=== PATIENT | male | born 1960 | race Caucasian/White ===

== ENCOUNTER → 2016-08-15 | Outpatient (CLI) | payer OTHER ==
--- NOTE | 2016-08-15 18:38 | REP ---
Clinical: Right-sided chest pain . Technique: Frontal view of the chest with multiple views of the right hemithorax. Findings: Frontal view of the chest demonstrates no acute cardiopulmonary process. Multiple views of the right hemithorax demonstrates no obvious acute rib fracture or pathology. Impression: Normal right rib series Signed by Tad Buchanan MD 08/15/2016 06:30 P
== END ==
LOC: M RAD 15:58
PROVIDERS: ATTEND Surgery
DX: R07.89 Other chest pain (principal)

== ENCOUNTER 2016-08-30 11:05 | Outpatient (CLI) | payer OTHER ==
[~2016-08-30] VITALS: Ht 177.8 cm; Wt 105.7 kg
[~2016-08-30 11:05] MED LIST: AMLO10TA2 PO; ASPI1TAB PO; FLOM5CAP PO; LIDOCAINE 2% INJ 100 MG/5 ML SDV (FOR ANES.) As Ordered ONE; PROPOFOL 200 MG/20 ML VIAL As Ordered ONE
--- NOTE | 2016-08-30 12:01 | ROOR ---
Patient Name: Hay Callahan Procedure Date: 08/30/2016 11:36 AM Date of : 1960 Age: 55 Room: [facility] Gender: Male Note Status: Finalized Procedure: Colonoscopy Indications: High risk colon cancer surveillance: Personal history of colonic polyps Providers: Mono Andrew Jr, MD Referring MD: RODERICK MANLEY MD Requesting Provider: Medicines: Propofol per Anesthesia Complications: No immediate complications. Procedure: Pre-Anesthesia Assessment: - Prior to the procedure, a History and Physical was performed, and patient medications and allergies were reviewed. The patient is competent. The risks and benefits of the procedure and the sedation options and risks were discussed with the patient. All questions were answered and informed consent was obtained. Patient identification and proposed procedure were verified by the physician and the nurse in the pre-procedure area and in the procedure room. Mental Status Examination: alert and oriented. Airway Examination: normal oropharyngeal airway and neck mobility. Respiratory Examination: clear to auscultation. CV Examination: normal. ASA Grade Assessment: II - A patient with mild systemic disease. After reviewing the risks and benefits, the patient was deemed in satisfactory condition to undergo the procedure. The anesthesia plan was to use moderate sedation / analgesia (conscious sedation). Immediately prior to administration of medications, the patient was re-assessed for adequacy to receive sedatives. The heart rate, respiratory rate, oxygen saturations, blood pressure, adequacy of pulmonary ventilation, and response to care were monitored throughout the procedure. The physical status of the patient was re-assessed after the procedure. The Colonoscope was introduced through the anus and advanced to the cecum, identified by appendiceal orifice and ileocecal valve. The colonoscopy was performed without difficulty. The patient tolerated the procedure well. The quality of the bowel preparation was adequate and good. Findings: The perianal and digital rectal examinations were normal. Pertinent negatives include normal sphincter tone, no palpable rectal lesions and no anal lesion or abnormality was detected. A small polyp was found in the recto-sigmoid colon. The polyp was removed with a hot snare. Resection and retrieval were complete. A medium polyp was found in the rectum. The polyp was semi-sessile. Coagulation for tissue destruction using snare was successful. The sigmoid colon, descending colon, transverse colon, ascending colon, cecum, appendiceal orifice and ileocecal valve appeared normal. Impression: - One small polyp at the recto-sigmoid colon, removed with a hot snare. Resected and retrieved. - One medium polyp in the rectum. Treated with a hot snare. - The sigmoid colon, descending colon, transverse colon, ascending colon, cecum, appendiceal orifice and ileocecal valve are normal. Recommendation: - Repeat colonoscopy in 5 years for surveillance. Mono Andrew MD Mono Andrew Jr, MD 08/30/2016 12:01:23 PM This report has been signed electronically. Number of Addenda: 0 Note Initiated On: 08/30/2016 11:36 AM Estimated Blood Loss: Estimated blood loss: none.
== END 2016-08-30 12:40 | disposition home or self-care (01) ==
LOC: M OPP 11:05
PROVIDERS: ATTEND Surgery
DX: Z12.11 Encounter for screening for malignant neoplasm of colon (principal); D12.7 Benign neoplasm of rectosigmoid junction; K62.1 Rectal polyp; I10 Essential (primary) hypertension; M19.90 Unspecified osteoarthritis, unspecified site; G47.33 Obstructive sleep apnea (adult) (pediatric); Z79.899 Other long term (current) drug therapy; Z79.82 Long term (current) use of aspirin

== ENCOUNTER → 2016-09-10 | Outpatient (REF) | payer OTHER ==
[~2016-09-10] MED LIST changes: -LIDOCAINE 2% INJ 100 MG/5 ML SDV (FOR ANES.) As Ordered ONE; -PROPOFOL 200 MG/20 ML VIAL As Ordered ONE
[2016-09-12 00:11] LABS: PSA % FREE 12.8 % (.); PSA FREE 0.69 ng/mL; PSA TOTAL 5.4 ng/mL (0.0-4.0)
== END ==
LOC: M SFHCLERA 09:50
PROVIDERS: ATTEND Urology
DX: R97.20 Elevated prostate specific antigen [PSA] (principal)

== ENCOUNTER 2016-10-08 21:35 | Inpatient (IN) | payer OTHER ==
[~2016-10-08] VITALS: Ht 180.3 cm; Wt 104.3 kg
[2016-10-08] MEDS ORDERED: NS 1,000 ML IV SCH ×2 (22:20→23:51)
[2016-10-08] MEDS ORDERED: KETOROLAC 30 MG/ML VIAL (J1885) IV ONE (22:30)
[2016-10-08] MEDS ORDERED: MORPHINE 2 MG/ML 1ML SYRINGE IV PRN (22:30)
[2016-10-08] MEDS ORDERED: ONDANSETRON 4MG/2ML VIAL (J2405) IV ONE (22:30)
--- NOTE | 2016-10-08 22:50 | REPUSA ---
CT of the abdomen and pelvis without contrast Clinical statement: Pain. Technique: Multiple axial CT images were obtained from the base of the lungs to the floor of the pelv is utilizing 5 mm axial slices without administration of contrast. Coronal and sagittal reconstructio ns were also obtained. Comparison: 12/19/2015. Findings: Chest: The visualized lung bases are clear. Abdomen: The kidneys are normal in size bilaterally. There is no evidence of hydronephrosis or nephro lithiasis. The liver, spleen, pancreas, gallbladder and adrenal glands are unremarkable. The aorta de monstrates normal caliber and contour. There is no abdominal lymphadenopathy or ascites. Pelvis: The bowel is unremarkable, with no obstructive or inflammatory changes.. The appendix is norm al. There is minimal sigmoid diverticulosis. The urinary bladder is within normal limits. There is no pelvic lymphadenopathy or ascites. The prostate gland is enlarged. Mild inflammatory stranding is se en around the prostate. Bones: There are no suspicious osseous abnormalities seen. Impression: 1. No evidence of hydronephrosis or nephrolithiasis. 2. The prostate gland is enlarged, but the sizes stable. However, there is new inflammatory changes a round the prostate which was not seen on the prior study. Prostatitis cannot be excluded. Clinical co rrelation is recommended. 3. No obstructive or inflammatory bowel changes. Stable sigmoid diverticulosis.
[2016-10-08 22:54] LABS: MEAN CORPUSCULAR HEMOGLOBIN 29.2 pg (27.0-33.0); MEAN CORPUSCULAR HGB CONC 33.5 g/dl (32.0-36.5); MEAN CORPUSCULAR VOLUME 87.1 fl (80.0-96.0); PLATELET COUNT, AUTOMATED 251 k/mm3 (150-450); RED CELL DISTRIBUTION WIDTH 12.9 % (11.5-14.5); WHITE BLOOD COUNT 29.6 K/mm3 (4.0-10.0)
[2016-10-08 23:08] LABS: ALBUMIN 3.8 GM/DL (3.2-5.2); ALBUMIN/GLOBULIN RATIO 1.03 (1.00-1.93); BILIRUBIN,DIRECT 0.2 MG/DL (0.0-0.2); BILIRUBIN,TOTAL 1.2 MG/DL (0.2-1.0); CALCIUM LEVEL 8.9 MG/DL (8.5-10.1); CREATININE FOR GFR 1.61 MG/DL (0.70-1.30); GLOMERULAR FILTRATION RATE 47.5 (>56); POTASSIUM SERUM 4.1 MEQ/L (3.5-5.1); TOTAL PROTEIN 7.5 GM/DL (6.4-8.2)
[2016-10-08] MEDS ORDERED: CIPROFLOXACIN 400 MG in APPROPRIATE DILUENT 1 EA IV ONE (23:15)
[2016-10-09] MEDS ORDERED: ONDANSETRON 4MG/2ML VIAL (J2405) IV PRN
[2016-10-09] MEDS ORDERED: BISACODYL 5 MG TAB PO PRN
[2016-10-09] MEDS ORDERED: ACETAMINOPHEN 325 MG TAB PO ONE
[2016-10-09] MEDS ORDERED: ASPI81TAEC PO (00:25)
[2016-10-09] MEDS: cefTRIAXone SOD 2 GM in D5W MINI-BAG PLUS 50 ML IV SCH (01:02)
[2016-10-09] MEDS ORDERED: NS 1,000 ML IV ONE (01:15)
[2016-10-09] MEDS ORDERED: VANCOMYCIN HCL 1,000 MG, VIAL MATE ADAPTER 1 EACH in D5W 250 ML IV ONE (01:15)
[2016-10-09] MEDS ORDERED: ENOXAPARIN 30 MG/0.3 ML SYR (J1650) SC ONE (01:15)
[2016-10-09] MEDS ORDERED: oxyCODONE 10 MG CR TAB PO ONE (01:15)
[2016-10-09 02:00] VITALS: BP 112/60
--- NOTE | 2016-10-09 06:12 | HPE ---
DATE OF ADMISSION: 10/08/2016 PRIMARY CARE PHYSICIAN: Fredo Jimenez. INPATIENT HOSPITALIST ATTENDING: Dr. Chidi Ramirez. CHIEF COMPLAINT: Suprapubic pain and fever, myalgias. HISTORY OF PRESENT ILLNESS: 56-year-old male with history of benign prostatic hypertrophy (BPH), with negative prostate biopsy, tubulovillous adenoma, hyperlipidemia with obstructive sleep apnea on CPAP, hypertension, impaired fasting glucose with allergies to Losartan, presents to the emergency room with 2 day history of subjective fevers and chills at home, suprapubic pain, myalgias, and cloudy urine. Patient went to work this morning and still felt run down, presented to the emergency room and was found to have a fever of 101.6 with complaints of suprapubic pain. CT abdomen and pelvis showed prostatitis yet complains of chills at home, suprapubic pain and no radiation. No hematuria. Patient has had some urine retention and pain on urination, cloudy urine, malodorous without urinary frequency or urgency. Patient denies any constipation, diarrhea. No changes in weight. Denies weight gain, weight loss. Has had decreased appetite for the past 2 days. He has taken some Tylenol for the pain. No non-steroidal anti-inflammatory drugs (NSAID) use. Denies any ibuprofen, Aleve or Naprosyn for his pain. He was found to have acute kidney injury. Creatinine 1.6. CT was negative for hydronephrosis, kidney stones, positive for prostatitis. Hospitalist service was called for admission due to sepsis. White count 29,000. Fever 101.6 with positive urinalysis. PAST MEDICAL HISTORY: Tubulovillous adenoma. Benign prostatic hypertrophy (BPH) with elevated PSA with negative biopsy of the prostate. Hypertension. Obstructive sleep apnea on CPAP. Hyperlipidemia. Impaired fasting glucose. Diverticulosis. ALLERGIES: LOSARTAN. PAST SURGICAL HISTORY: Colonoscopy age 50. Tubulovillous adenoma Dr. oMno Andrew. Prostate biopsy 11/[address] Todd negative. FAMILY HISTORY: Father with prostate cancer. Mother alive with breast cancer, heart disease. One sister healthy. One son and daughter. Patient is a nonsmoker. Social alcohol use. REVIEW OF SYSTEMS: Per HPI, twelve point system otherwise negative. PHYSICAL EXAMINATION: T-max 101.6, 99.5 current temperature, sinus rhythm, ventricle rate of 93, respiratory rate 19, blood pressure 116/63, 99% on room air. Generally, patient is awake, alert, oriented times three, answering questions appropriately. He is lying in position on his left side. Pupils are round , reactive to light and accommodation. Extraocular muscles are intact. Normocephalic, atraumatic. No jaundice or icterus. No jugular venous distention, thyromegaly. Moist mucous membranes. No cervical lymphadenopathy. Lungs: Clear to auscultation. No wheezing, rales or rhonchi. Heart: S1, S2. Sinus rhythm. No murmurs, rubs or gallops. Abdomen: Soft, tender in the suprapubic area. No CVA tenderness. Positive bowel sounds times four quadrants. No rebound or guarding. Extremities: No cyanosis, clubbing or pitting edema. LABORATORY DATA: White count 29.6, hemoglobin 50, hematocrit 46, platelet count 251. 91% neutrophils. Sodium 141, potassium 4.1, chloride 104, bicarbonate 27, BUN 17, creatinine 1.61, glucose 124, total bilirubin 1.2, direct bilirubin 0.2, AST 13, ALT 20, alkaline phosphatase 59, total protein 7.5, albumin 3.8, lipase 83. Urinalysis: Cloudy appearance, 1+ protein, 1+ blood, positive nitrites, 3+ leukocyte esterase, too numerous to count WBCs, 16 RBCs, 3+ bacteria. CT abdomen and pelvis: No evidence of hydronephrosis or nephrolithiasis. Prostate is enlarged. Sizes are stable. No inflammatory changes around the prostate which was not seen on prior study. Prostatitis cannot be excluded. No obstructive or inflammatory bowel changes. Stable sigmoid diverticulosis. ASSESSMENT AND PLAN: This is a 56-year-old male with history of hypertension, obstructive sleep apnea, hyperlipidemia, impaired fasting glucose, diverticulosis, tubulovillous adenomatous colonic polyps, elevated PSA with prostate biopsy negative for malignancy follows with urologist Dr. Todd, presents to the emergency room with 2 day history of subjective fevers and chills at home, suprapubic pain with myalgias and chills, was found to have a fever of 101.6, white count 29,000 admitted for prostatitis. Patient will be admitted as an inpatient for 2 midnights for the following issues: 1. Sepsis secondary to prostatitis. Patient has an enlarged prostate, inflamed with inflammation and abnormal urinalysis, cloudy urine. Patient will be admitted as an inpatient for intravenous antibiotics with ceftriaxone due to risk of enterococcus. He has also been given one dose of vancomycin. Await urine culture. Obtain blood cultures as well. Symptomatic care with Tylenol as needed. Avoid nephrotoxins. Renally dose all medications. Due to complaints of urine retention, bladder scan every 4 hours. If 300 mL post void residual, may need intermittent catheterization versus Toribio to gravity. No hydronephrosis on x-ray. Continue to monitor patient's CBC and fevers. Await culture results. 2. Acute kidney injury secondary to urinary retention due to enlarged prostate. At this time, patient complains of urine retention, therefore will check for post void residual. No hydronephrosis on examination. Currently on Flomax, continue with the same. Avoid nephrotoxins. Renally dose all medications. IV fluid hydration. Avoid non-steroidal anti-inflammatory drugs (NSAID)s, ibuprofen, Naprosyn or Aleve. Patient did receive one dose of Toradol by the emergency room provider. Avoid further Toradol in light of acute kidney injury. Monitor patient's input and output. 3. Hypertension. Continue on Norvasc. Avoid hydrochlorothiazide for now due to acute kidney injury. 4. Hyperlipidemia. Check lipid profile in the morning. 5. Enlarged prostate with benign prostatic hypertrophy (BPH). Continue on Flomax, currently being treated for prostatitis. 6. Obstructive sleep apnea, may use home CPAP. 7. Impaired fasting glucose. Check A1c in the morning. 8. Deep venous thrombosis (DVT) prophylaxis with renally dosed Lovenox. Patient will be assigned to Dr. Chidi Ramirez 7 a.m. on 10/09/2016. SHIVAM
[2016-10-09 07:55] LABS: BASO % 0.1 % (0.0-1.0); EOS % 0.1 % (0.0-3.0); LARGE UNSTAINED CELL # 0.1 K/mm3 (0.0-0.4); LARGE UNSTAINED CELL % 0.5 % (0.0-4.0); LYMPH # 1.5 K/mm3 (1.5-4.5); LYMPH % 5.3 % (24.0-44.0); MEAN CORPUSCULAR VOLUME 87.8 fl (80.0-96.0); MONO # 0.9 K/mm3 (0.0-0.8); MONO % 3.7 % (0.0-5.0); NEUTROPHILS # 22.5 K/mm3 (1.8-7.7); NEUTROPHILS % 90.3 % (36.0-66.0); PLATELET COUNT, AUTOMATED 211 k/mm3 (150-450); RED CELL DISTRIBUTION WIDTH 13.1 % (11.5-14.5); WHITE BLOOD COUNT 24.9 K/mm3 (4.0-10.0)
[2016-10-09 08:00] VITALS: BP 108/74
[2016-10-09 08:21] LABS: ALBUMIN 2.8 GM/DL (3.2-5.2); ALBUMIN/GLOBULIN RATIO 0.85 (1.00-1.93); ALKALINE PHOSPHATASE 52 U/L (45-117); ALT/SGPT 16 U/L (12-78); ANION GAP 8 MEQ/L (8-16); AST/SGOT 9 U/L (15-37); BILIRUBIN,TOTAL 0.9 MG/DL (0.2-1.0); BLOOD UREA NITROGEN 16 MG/DL (7-18); CALCIUM LEVEL 7.8 MG/DL (8.5-10.1); CARBON DIOXIDE LEVEL 25 MEQ/L (21-32); CHLORIDE LEVEL 106 MEQ/L (98-107); CREATININE FOR GFR 1.16 MG/DL (0.70-1.30); GLOMERULAR FILTRATION RATE > 60.0 (>56); GLUCOSE, FASTING 116 MG/DL (70-105); MAGNESIUM LEVEL 1.7 MG/DL (1.8-2.4); POTASSIUM SERUM 3.6 MEQ/L (3.5-5.1); SODIUM LEVEL 139 MEQ/L (136-145); TOTAL PROTEIN 6.1 GM/DL (6.4-8.2)
[2016-10-09] MEDS: amLODIPine 10 MG TAB PO SCH (08:27)
[2016-10-09] MEDS: ASPIRIN 81 MG ENTERIC TAB PO SCH (08:27)
[2016-10-09] MEDS: PERCOCET 5MG/325MG TAB PO PRN ×2 (08:28→13:07)
[2016-10-09] MEDS ORDERED: ENOXAPARIN 40 MG/0.4 ML SYRINGE (J1650) SC SCH (09:00)
[2016-10-09] MEDS ORDERED: MAG SULF 1GM/100ML (MAG RUN) 1 GM in APPROPRIATE DILUENT 1 EA IV ONE (11:15)
[2016-10-09 14:44] VITALS: BP 128/71
[2016-10-09] MEDS: IBUPROFEN 800 MG TAB PO PRN ×2 (15:08→21:57)
[2016-10-09] MEDS: NS 1,000 ML IV SCH (15:08)
--- NOTE | 2016-10-09 16:05 | IPNPDOC ---
Text Note Date of Service The patient was seen on 10/09/16. NOTE Subjective: Patient is a 56 year old male with a PMHx of BPH (negative prostate biopsy), DLP, BLANK on CPAP, HTN, Pre-DM2, who presented to the ER with fever/ chills, suprapubic pain and cloudy urine. He was admitted for a UTI. Patient was seen and examined at the bedside. He reported that he had difficulty with urination last night and Toribio catheter was placed. Objective: Vitals (See below) General: Lying in bed, no acute distress, comfortable, AAOx3 HEENT: NC, AT CVS: RRR, +S1S2 Lungs: Fair air entry b/l, -w/r/r Abdomen: Soft, ND, NT, +BSx4 Extremities: +PPx4, - Edema, - Calf tenderness Assessment and plan: 1. Fever and cloud urine - likely 2/2 Urinary tract infection - likely 2/2 prostatitis - Presented with fever / chills, supra-pubic pain, cloudy urine - Physical revealed a fever initially - UA consistent with infection - CT abdomen/pelvis 10/09: reveals evidence of prostate inflammation - f/u Blood cultures and urine cultures - s/p Ciprofloxacin and Vancomycin (1 dose each) - c/w Ceftriaxone 2. Acute kidney injury on CKD3 - likely 2/2 urinary retention - Cr baseline of 1.2-1.3; currently at 1.8 - s/p Toribio catheter with large volume output - will avoid nephrotoxic medications - c/w IV fluid hydration 3. HTN - c/w amlodipine 4. DLP 5. BPH - c/w Tamsulosin 6. BLANK on CPAP - allow home CPAP use 7. Impaired fasting glucose - A1c of 5.9 8. DVT prophylaxis - c/w Lovenox VS,Fishbone, I+O VS, Fishbone, I+O Laboratory Tests 10/08/16 22:38 Red Blood Count 5.29, Mean Corpuscular Volume 87.1, Mean Corpuscular Hemoglobin 29.2, Mean Corpuscular Hemoglobin Concent 33.5, Red Cell Distribution Width 12.9 10/09/16 07:01 Red Blood Count 4.70, Mean Corpuscular Volume 87.8, Mean Corpuscular Hemoglobin 29.0, Mean Corpuscular Hemoglobin Concent 33.0, Red Cell Distribution Width 13.1 , Neutrophils (%) (Auto) 90.3 H, Lymphocytes (%) (Auto) 5.3 L, Monocytes (%) ( Auto) 3.7, Eosinophils (%) (Auto) 0.1, Basophils (%) (Auto) 0.1, Neutrophils # ( Auto) 22.5 H, Lymphocytes # (Auto) 1.5, Monocytes # (Auto) 0.9 H, Eosinophils # (Auto) 0.0, Basophils # (Auto) 0.0, Calcium Level 7.8 L, Aspartate Amino Transf (AST/SGOT) 9 L, Alanine Aminotransferase (ALT/SGPT) 16, Alkaline Phosphatase 52 , Total Bilirubin 0.9, Total Protein 6.1 L, Albumin 2.8 #L Vital Signs Date Time Temp Pulse Resp B/P (MAP) Pulse Ox O2 Delivery O2 Flow Rate FiO2 10/09/16 14:44 101.7 103 20 128/71 (90) 98 Room Air I&O- Last 24 Hours up to 6 AM 10/09/16 06:00 Intake Total 2000 ml Output Total 750 ml Balance 1250 ml GABRIELA DELONG MD October 09, 2016 16:05
[2016-10-09 20:00] VITALS: BP 116/71
[2016-10-09] MEDS: TAMSULOSIN 0.4 MG CAP PO SCH (21:52)
[2016-10-10] VITALS: BP 125/71
[2016-10-10] MEDS: PERCOCET 5MG/325MG TAB PO PRN ×4 (00:06→20:31)
[2016-10-10] MEDS: NS 1,000 ML IV SCH ×2 (01:00→11:05)
[2016-10-10] MEDS: cefTRIAXone SOD 2 GM in D5W MINI-BAG PLUS 50 ML IV SCH (01:24)
[2016-10-10 04:00] VITALS: BP 105/59
[2016-10-10 07:29] LABS: BASO % 0.2 % (0.0-1.0); EOS % 0.3 % (0.0-3.0); LARGE UNSTAINED CELL # 0.1 K/mm3 (0.0-0.4); LARGE UNSTAINED CELL % 0.5 % (0.0-4.0); LYMPH # 0.9 K/mm3 (1.5-4.5); LYMPH % 6.7 % (24.0-44.0); MEAN CORPUSCULAR HEMOGLOBIN 28.9 pg (27.0-33.0); MEAN CORPUSCULAR HGB CONC 31.9 g/dl (32.0-36.5); MEAN CORPUSCULAR VOLUME 90.6 fl (80.0-96.0); MONO # 0.4 K/mm3 (0.0-0.8); MONO % 3.3 % (0.0-5.0); NEUTROPHILS # 11.7 K/mm3 (1.8-7.7); PLATELET COUNT, AUTOMATED 176 k/mm3 (150-450); WHITE BLOOD COUNT 13.1 K/mm3 (4.0-10.0)
[2016-10-10 07:47] LABS: ANION GAP 5 MEQ/L (8-16); BLOOD UREA NITROGEN 10 MG/DL (7-18); CALCIUM LEVEL 8.2 MG/DL (8.5-10.1); CARBON DIOXIDE LEVEL 28 MEQ/L (21-32); CHLORIDE LEVEL 108 MEQ/L (98-107); CREATININE FOR GFR 1.22 MG/DL (0.70-1.30); GLOMERULAR FILTRATION RATE > 60.0 (>56); GLUCOSE, FASTING 94 MG/DL (70-105); POTASSIUM SERUM 3.8 MEQ/L (3.5-5.1); SODIUM LEVEL 141 MEQ/L (136-145)
[2016-10-10 08:00] VITALS: BP 131/71
[2016-10-10] MEDS: ENOXAPARIN 30 MG/0.3 ML SYR (J1650) SC SCH (08:40)
[2016-10-10] MEDS: ASPIRIN 81 MG ENTERIC TAB PO SCH (08:41)
[2016-10-10] MEDS: amLODIPine 10 MG TAB PO SCH (08:42)
[2016-10-10 09:08] LABS: MAGNESIUM LEVEL 2.1 MG/DL (1.8-2.4)
--- NOTE | 2016-10-10 11:30 | IPNPDOC ---
Text Note Date of Service The patient was seen on 10/10/16. NOTE Subjective: Patient is a 56 year old male with a PMHx of BPH (negative prostate biopsy), DLP, BLANK on CPAP, HTN, Pre-DM2, who presented to the ER with fever/ chills, suprapubic pain and cloudy urine. He was admitted for a UTI. Patient was seen and examined at the bedside. He notes that he is having improvement in his urinary burning. He notes that his back pain has been acting up, but gets controlled with current pain regimen. Objective: Vitals (See below) General: Lying in bed, no acute distress, comfortable, AAOx3 HEENT: NC, AT CVS: RRR, +S1S2 Lungs: Fair air entry b/l, -w/r/r Abdomen: Soft, ND, NT, +BSx4 Extremities: +PPx4, - Edema, - Calf tenderness Assessment and plan: 1. Fever and cloud urine - likely 2/2 Urinary tract infection - likely 2/2 prostatitis - Presented with fever / chills, supra-pubic pain, cloudy urine - Physical revealed a fever initially - UA consistent with infection - Leukocytosis improving - CT abdomen/pelvis 10/09: reveals evidence of prostate inflammation - Blood cultures negative at 24 hours; Urine cultures pending - s/p Ciprofloxacin and Vancomycin (1 dose each) - c/w Ceftriaxone (Day #2) 2. Acute kidney injury on CKD3 - likely 2/2 urinary retention - Cr baseline of 1.2-1.3; currently at 1.8 - s/p Toribio catheter with large volume output - will avoid nephrotoxic medications - c/w IV fluid hydration 3. HTN - BP has been well controlled without therapy - Will hold Amlodipine 4. DLP 5. BPH - c/w Tamsulosin 6. BLANK on CPAP - allow home CPAP use 7. Impaired fasting glucose - A1c of 5.9 - will recommend dietary changes - will change to consistent carbohydrate diet 8. DVT prophylaxis - c/w Lovenox VS,Fishbone, I+O VS, Fishbone, I+O Laboratory Tests 10/10/16 06:34 Red Blood Count 4.62, Mean Corpuscular Volume 90.6, Mean Corpuscular Hemoglobin 28.9, Mean Corpuscular Hemoglobin Concent 31.9 L, Red Cell Distribution Width 13.0, Neutrophils (%) (Auto) 89.0 H, Lymphocytes (%) (Auto) 6.7 L, Monocytes (% ) (Auto) 3.3, Eosinophils (%) (Auto) 0.3, Basophils (%) (Auto) 0.2, Neutrophils # (Auto) 11.7 H, Lymphocytes # (Auto) 0.9 L, Monocytes # (Auto) 0.4, Eosinophils # (Auto) 0.0, Basophils # (Auto) 0.0, Calcium Level 8.2 L Vital Signs Date Time Temp Pulse Resp B/P (MAP) Pulse Ox O2 Delivery O2 Flow Rate FiO2 10/10/16 09:12 18 Room Air 10/10/16 08:42 94 131/71 10/10/16 08:00 99.8 94 I&O- Last 24 Hours up to 6 AM 10/10/16 06:00 Intake Total 3940 ml Output Total 1025 ml Balance 2915 ml GABRIELA DELONG MD October 10, 2016 11:30
[2016-10-10 12:00] VITALS: BP 110/62
[2016-10-10] MEDS: ACETAMINOPHEN TAB 650MG DOSE (2X325MG) PO PRN (15:27)
[2016-10-10 16:30] VITALS: BP 135/78
[2016-10-10 20:00] VITALS: BP 123/57
[2016-10-10] MEDS: TAMSULOSIN 0.4 MG CAP PO SCH (20:31)
[2016-10-10] MEDS: IBUPROFEN 800 MG TAB PO PRN (20:31)
[2016-10-11] VITALS: BP 125/66
[2016-10-11] MEDS: cefTRIAXone SOD 2 GM in D5W MINI-BAG PLUS 50 ML IV SCH (00:38)
[2016-10-11] MEDS: NS 1,000 ML IV SCH ×2 (00:42→06:22)
[2016-10-11 04:00] VITALS: BP 121/71
[2016-10-11 07:32] LABS: BASO % 0.4 % (0.0-1.0); EOS # 0.1 K/mm3 (0.0-0.50); EOS % 0.9 % (0.0-3.0); LARGE UNSTAINED CELL # 0.2 K/mm3 (0.0-0.4); LARGE UNSTAINED CELL % 2.3 % (0.0-4.0); MEAN CORPUSCULAR HEMOGLOBIN 29.1 pg (27.0-33.0); MEAN CORPUSCULAR HGB CONC 33.1 g/dl (32.0-36.5); MEAN CORPUSCULAR VOLUME 87.7 fl (80.0-96.0); MONO # 0.4 K/mm3 (0.0-0.8); MONO % 6.1 % (0.0-5.0); NEUTROPHILS # 4.8 K/mm3 (1.8-7.7); NEUTROPHILS % 76.3 % (36.0-66.0); PLATELET COUNT, AUTOMATED 179 k/mm3 (150-450); RED CELL DISTRIBUTION WIDTH 12.9 % (11.5-14.5); WHITE BLOOD COUNT 6.3 K/mm3 (4.0-10.0)
[2016-10-11 07:56] LABS: ANION GAP 6 MEQ/L (8-16); BLOOD UREA NITROGEN 7 MG/DL (7-18); CALCIUM LEVEL 8.3 MG/DL (8.5-10.1); CARBON DIOXIDE LEVEL 28 MEQ/L (21-32); CHLORIDE LEVEL 107 MEQ/L (98-107); CREATININE FOR GFR 1.06 MG/DL (0.70-1.30); GLOMERULAR FILTRATION RATE > 60.0 (>56); GLUCOSE, FASTING 133 MG/DL (70-105); MAGNESIUM LEVEL 2.4 MG/DL (1.8-2.4); POTASSIUM SERUM 3.2 MEQ/L (3.5-5.1); SODIUM LEVEL 141 MEQ/L (136-145)
[2016-10-11 08:00] VITALS: BP 134/75
[2016-10-11] MEDS: amLODIPine 5 MG TAB PO SCH (08:12)
[2016-10-11] MEDS: ENOXAPARIN 30 MG/0.3 ML SYR (J1650) SC SCH (08:12)
[2016-10-11] MEDS ORDERED: POTASSIUM CHLORIDE 10 MEQ SR TABLET PO ONE (09:30)
[2016-10-11] MEDS: ASPIRIN 81 MG ENTERIC TAB PO SCH (10:03)
[2016-10-11 12:00] VITALS: BP 135/82
--- NOTE | 2016-10-11 12:04 | IPNPDOC ---
Text Note Date of Service The patient was seen on 10/11/16. NOTE Subjective: Patient is a 56 year old male with a PMHx of BPH (negative prostate biopsy), DLP, BLANK on CPAP, HTN, Pre-DM2, who presented to the ER with fever/ chills, suprapubic pain and cloudy urine. He was admitted for a UTI. Patient was seen and examined at the bedside. He notes that he is feeling better than yesterday. He was ambulating and has remained afebrile. He notes that his back pain has been resolving. He was advised that his Toribio catheter would be removed today and we would perform a voiding trail. Objective: Vitals (See below) General: Lying in bed, no acute distress, comfortable, AAOx3 HEENT: NC, AT CVS: RRR, +S1S2 Lungs: Fair air entry b/l, -w/r/r Abdomen: Soft, ND, NT, +BSx4 Extremities: +PPx4, - Edema, - Calf tenderness Assessment and plan: 1. Fever and cloud urine - likely 2/2 Urinary tract infection - likely 2/2 prostatitis - Presented with fever / chills, supra-pubic pain, cloudy urine - Physical revealed a fever initially - UA consistent with infection - Leukocytosis resolved - CT abdomen/pelvis 10/09: reveals evidence of prostate inflammation - Blood cultures negative at 24 hours; Urine cultures pending (Discussed with microbiology - will be available tomorrow AM) - s/p Ciprofloxacin and Vancomycin (1 dose each) - c/w Ceftriaxone (Day #3) 2. Acute kidney injury on CKD3 - likely 2/2 urinary retention - Cr baseline of 1.2-1.3 - Continues to improve - s/p Toribio catheter with large volume output - will avoid nephrotoxic medications - Will discontinue Toribio catheter now; will evaluate with bladder scan [id number], if large volume accumulation / symptoms will reinsert Toribio - c/w IV fluid hydration 3. HTN - BP has been well controlled without therapy - Amlodipine reduced to 5mg PO QD 4. DLP 5. BPH - c/w Tamsulosin 6. BLANK on CPAP - allow home CPAP use 7. Impaired fasting glucose - A1c of 5.9 - c/w consistent carbohydrate diet 8. DVT prophylaxis - c/w Lovenox VS,Fishbone, I+O VS, Fishbone, I+O Laboratory Tests 10/11/16 06:52 Red Blood Count 4.64, Mean Corpuscular Volume 87.7, Mean Corpuscular Hemoglobin 29.1, Mean Corpuscular Hemoglobin Concent 33.1, Red Cell Distribution Width 12.9 , Neutrophils (%) (Auto) 76.3 H, Lymphocytes (%) (Auto) 14.0 L, Monocytes (%) ( Auto) 6.1 H, Eosinophils (%) (Auto) 0.9, Basophils (%) (Auto) 0.4, Neutrophils # (Auto) 4.8, Lymphocytes # (Auto) 1.0 L, Monocytes # (Auto) 0.4, Eosinophils # (Auto) 0.1, Basophils # (Auto) 0.0, Calcium Level 8.3 L Vital Signs Date Time Temp Pulse Resp B/P (MAP) Pulse Ox O2 Delivery O2 Flow Rate FiO2 10/11/16 08:12 80 134/75 10/11/16 08:00 99.3 18 95 Room Air I&O- Last 24 Hours up to 6 AM 10/11/16 06:00 Intake Total 2460 ml Output Total 2825 ml Balance -365 ml GABRIELA DELONG MD October 11, 2016 12:04
[2016-10-11] MEDS: IBUPROFEN 800 MG TAB PO PRN (12:06)
[2016-10-11 16:00] VITALS: BP 137/80
[2016-10-11 20:00] VITALS: BP 130/71
[2016-10-11] MEDS: TAMSULOSIN 0.4 MG CAP PO SCH (20:40)
[2016-10-12] VITALS: BP 119/57
[2016-10-12] MEDS: cefTRIAXone SOD 2 GM in D5W MINI-BAG PLUS 50 ML IV SCH (01:57)
[2016-10-12] MEDS: PERCOCET 5MG/325MG TAB PO PRN (01:57)
[2016-10-12 04:00] VITALS: BP 119/73
[2016-10-12 06:49] LABS: BASO % 0.4 % (0.0-1.0); EOS # 0.1 K/mm3 (0.0-0.50); EOS % 1.2 % (0.0-3.0); LARGE UNSTAINED CELL # 0.5 K/mm3 (0.0-0.4); LARGE UNSTAINED CELL % 7.4 % (0.0-4.0); LYMPH # 1.4 K/mm3 (1.5-4.5); MEAN CORPUSCULAR HEMOGLOBIN 29.3 pg (27.0-33.0); MEAN CORPUSCULAR HGB CONC 33.7 g/dl (32.0-36.5); MONO # 0.7 K/mm3 (0.0-0.8); MONO % 10.3 % (0.0-5.0); NEUTROPHILS # 4.4 K/mm3 (1.8-7.7); NEUTROPHILS % 60.7 % (36.0-66.0); PLATELET COUNT, AUTOMATED 232 k/mm3 (150-450); RED CELL DISTRIBUTION WIDTH 12.8 % (11.5-14.5); WHITE BLOOD COUNT 7.2 K/mm3 (4.0-10.0)
[2016-10-12 07:02] LABS: ANION GAP 7 MEQ/L (8-16); BLOOD UREA NITROGEN 8 MG/DL (7-18); CALCIUM LEVEL 8.5 MG/DL (8.5-10.1); CARBON DIOXIDE LEVEL 25 MEQ/L (21-32); CHLORIDE LEVEL 108 MEQ/L (98-107); CREATININE FOR GFR 1.01 MG/DL (0.70-1.30); GLOMERULAR FILTRATION RATE > 60.0 (>56); GLUCOSE, FASTING 95 MG/DL (70-105); MAGNESIUM LEVEL 2.2 MG/DL (1.8-2.4); POTASSIUM SERUM 3.8 MEQ/L (3.5-5.1); SODIUM LEVEL 140 MEQ/L (136-145)
[2016-10-12] MEDS ORDERED: AMLO5TAB2 PO (07:43)
[2016-10-12] MEDS ORDERED: BACT800T5 PO (07:43)
[2016-10-12 08:00] VITALS: BP 119/69
[2016-10-12 09:08] VITALS: BP 119/69
[2016-10-12] MEDS: amLODIPine 5 MG TAB PO SCH (09:08)
[2016-10-12] MEDS: ASPIRIN 81 MG ENTERIC TAB PO SCH (09:09)
[2016-10-12] MEDS: ACETAMINOPHEN TAB 650MG DOSE (2X325MG) PO PRN (09:09)
[2016-10-12] MEDS: ENOXAPARIN 30 MG/0.3 ML SYR (J1650) SC SCH (09:10)
[2016-10-12] MEDS ORDERED: FINASTERIDE 5 MG TAB PO ONE (10:00)
[2016-10-12 12:00] VITALS: BP 136/88
[2016-10-12] MEDS ORDERED: FINA5TAB2 PO (13:19)
[2016-10-12] MEDS ORDERED: FLOM5CAP PO (13:19)
--- NOTE | 2016-10-12 16:09 | DSES ---
DATE OF ADMISSION: 10/08/2016 DATE OF DISCHARGE: 10/12/2016 ATTENDING PHYSICIAN: Chidi Ramirez MD PRIMARY CARE PHYSICIAN: Fredo Jimenez MD REFERRING PHYSICIAN: None. CONSULTING PHYSICIAN: None. CONDITION ON DISCHARGE: Stable. FINAL DIAGNOSIS: Prostatitis. PROCEDURES: None. HISTORY OF PRESENT ILLNESS: Patient is a 56-year-old male with a past medical history of BPH, negative prostate biopsy, dyslipidemia, obstructive sleep apnea on continuous positive airway pressure (CPAP), hypertension, prediabetes, presented to the emergency room with fevers and chills, suprapubic pain, and cloudy urine. He was admitted for a urinary tract infection. Throughout the hospital course patient developed urinary retention and had a Toribio catheter placed. HOSPITAL COURSE: 1. Fever and cloudy urine, likely secondary to urinary tract infection, likely secondary to prostatitis. Presented with fever and chills with suprapubic pain and cloudy urine. Physical revealed a fever initially. Urinalysis was consistent with infection, leukocytosis, initially elevated, but has resolved throughout the hospital course. CT abdomen and pelvis done on 10/09/2016, revealed evidence of prostate inflammation. Blood cultures were negative throughout the hospital course and urine cultures became positive for Escherichia (E) coli which is sensitive to Bactrim. Patient was initially put on ciprofloxacin and vancomycin for one dose in the emergency room and then he was continued with ceftriaxone throughout the hospital course. Upon discharge, patient was transitioned to Bactrim for which he is going to complete a 6 week duration of antibiotics. 2. Acute kidney injury on chronic kidney disease (CKD), likely secondary to urinary retention. Creatinine baseline of 1.2 to 1.3, continues to improve. Patient had a Toribio catheter placed and had a large volume output. Nephrotoxic medications were avoided. Patient had his Toribio catheter discontinued on 10/11/2016, in the morning. Throughout that point patient had some episodes of urinary retention and had a straight catheter placed. Patient was continued with tamsulosin, his dose of tamsulosin was increased in the evenings and finasteride was added to the regimen. 3. Hypertension. Blood pressure remains well controlled without therapy. Amlodipine was reduced to 5 mg by mouth daily. 4. Dyslipidemia. 5. BPH. Continue with tamsulosin 0.8 mg nightly and finasteride 5 mg in the morning. Patient was advised to followup with urologist, Dr. Todd. Case was discussed with Dr. Todd and agrees that he will continue with finasteride and tamsulosin on a daily basis and patient will be advised to followup with him in the next 7 days. 6. Obstructive sleep apnea on CPAP. Allow home CPAP use. 7. Impaired fasting glucose. A1c of 5.9. Continue with consistent carbohydrate diet. 8. Deep venous thrombosis (DVT) prophylaxis. Continue with Lovenox. DISCHARGE MEDICATIONS: The patient will be discharged home with the following medication list: - aspirin 81 mg by mouth daily - tamsulosin 0.8 mg by mouth nightly - amlodipine 5 mg by mouth daily - finasteride 5 mg by mouth daily - Bactrim one tablet by mouth twice a day for a 6 week duration DISCHARGE INSTRUCTIONS: Patient has been advised to followup with his primary care provider and urology within the next 7 days. He has been advised to remain compliant with treatment plan and medications and to return to the emergency room if he experiences any problems. TIME SPENT ON DISCHARGE: 35 minutes.
[2016-10-12] MEDS ORDERED: TAMSULOSIN 0.4 MG CAP PO SCH (21:00)
[2016-10-13] MEDS ORDERED: FINASTERIDE 5 MG TAB PO SCH (09:00)
== END 2016-10-12 13:45 | disposition home or self-care (01) | DRG 728 ==
LOC: M ED 22:30 → M ED INP 23:51 → M PED 10-09 01:56
PROVIDERS: ADMIT General Practice; ATTEND Internal Medicine
DX: N41.9 Inflammatory disease of prostate, unspecified (principal); N39.0 Urinary tract infection, site not specified; E78.5 Hyperlipidemia, unspecified; G47.33 Obstructive sleep apnea (adult) (pediatric); I12.9 Hypertensive chronic kidney disease with stage 1 through stage 4 chronic kidney disease, or unspecified chronic kidney disease; B96.20 Unspecified Escherichia coli [E. coli] as the cause of diseases classified elsewhere; N40.1 Benign prostatic hyperplasia with lower urinary tract symptoms; R97.20 Elevated prostate specific antigen [PSA]; N18.3 Chronic kidney disease, stage 3 (moderate); R73.03 Prediabetes; Z79.82 Long term (current) use of aspirin; Z96.0 Presence of urogenital implants; R33.9 Retention of urine, unspecified; Z99.89 Dependence on other enabling machines and devices; Z88.8 Allergy status to other drugs, medicaments and biological substances; Z80.3 Family history of malignant neoplasm of breast; Z82.49 Family history of ischemic heart disease and other diseases of the circulatory system; Z80.42 Family history of malignant neoplasm of prostate

== ENCOUNTER → 2016-11-13 | Outpatient (CLI) | payer OTHER ==
[~2016-11-13] MED LIST changes: +AMLO5TAB2 PO; +ASPI81TAEC PO; +BACT800T5 PO; +FINA5TAB2 PO; +METHACHOLINE KIT (J7674) INH ONE
--- NOTE | 2016-11-13 16:23 | PFTRPT ---
Site: [facility], [address] [place], [address] ID: [id number] Name: VINAYAK ADAMS Doctor: Alejandra Valencia MD Tech: Wade YANG RRT Age: 56 Sex: Male Race: Height: 70.00 Inches Weight: 234.00 Lbs BSA: 2.23 Diagnosis: R06.00 of albuterol for postbronchodilator. Pre-Bronch Post-Bronch Pred Actual %Pred Actual %Chng SPIROMETRY FVC (L) 4.89 3.95 80 3.73 -5 FEV1 (L) 3.74 3.18 85 3.07 -3 FEV1/FVC (%) 76 81 105 82 2 FEF 25% (L/sec) 8.06 7.87 97 6.29 -20 FEF 50% (L/sec) 5.07 3.51 69 3.59 2 FEF 75% (L/sec) 1.63 1.17 71 0.92 -20 FEF 25-75% (L/sec) 3.17 2.98 94 2.72 -8 FEF Max (L/sec) 9.49 8.97 94 6.46 -27 FIVC (L) 3.87 3.60 -7 FIF 50% (L/sec) 4.82 6.91 143 4.55 -34 FIF Max (L/sec) 7.80 5.04 -35
== END ==
LOC: M CARPUL 13:17
PROVIDERS: ATTEND Internal Medicine Pulmonary Disease
DX: R06.00 Dyspnea, unspecified (principal)

== ENCOUNTER → 2017-07-01 | Outpatient (CLI) | payer OTHER ==
[2017-07-01 14:17] LABS: PROSTATIC SPECIFIC AG MONITOR 2.42 NG/ML (< 4.0)
== END ==
LOC: M SMT 09:01
DX: R97.20 Elevated prostate specific antigen [PSA] (principal)

== ENCOUNTER → 2017-12-24 | Outpatient (REF) | payer OTHER | LOC: M LABSMT 10:11 | DX: N40.1 Benign prostatic hyperplasia with lower urinary tract symptoms (principal); R97.20 Elevated prostate specific antigen [PSA]; R39.9 Unspecified symptoms and signs involving the genitourinary system | CPT/HCPCS: 84153 ==

== ENCOUNTER → 2019-01-05 | Outpatient (CLI) | payer OTHER ==
[~2019-01-05] MED LIST changes: -AMLO10TA2 PO; +AMLO10TA5 PO; -AMLO5TAB2 PO; +AMLO5TAB6 PO; -ASPI1TAB PO; +ASPI81TA26 PO; +FLOM0.4C39 PO; -FLOM5CAP PO; -METHACHOLINE KIT (J7674) INH ONE
[2019-01-08 00:06] LABS: PSA TOTAL 2.7 ng/mL (0.0-4.0)
== END ==
LOC: M LRY 10:54
PROVIDERS: ATTEND Urology
DX: N40.1 Benign prostatic hyperplasia with lower urinary tract symptoms (principal)

== ENCOUNTER → 2019-07-13 | Outpatient (REF) | payer OTHER ==
[2019-07-16 00:06] LABS: PSA TOTAL 1.3 ng/mL (0.0-4.0)
== END ==
LOC: M SFHCLERA 08:41
PROVIDERS: ATTEND Nurse Practitioner Women's Health
DX: R97.20 Elevated prostate specific antigen [PSA] (principal)

== ENCOUNTER → 2020-01-21 | Outpatient (REF) | payer OTHER ==
[~2020-01-21] MED LIST changes: -AMLO10TA5 PO; +AMLO1TAB24 PO; +AMLO1TAB25 PO; -AMLO5TAB6 PO
== END ==
LOC: M SFHCLERA 10:30 → M LAB REF 10:30
PROVIDERS: ATTEND Nurse Practitioner Women's Health
DX: R97.20 Elevated prostate specific antigen [PSA] (principal)

== ENCOUNTER → 2021-01-25 | Outpatient (CLI) | payer OTHER ==
[~2021-01-25] MED LIST changes: +ASPI-569 PO; -ASPI81TAEC PO
== END ==
LOC: M PLALAB 08:25
PROVIDERS: ATTEND Nurse Practitioner Women's Health
DX: R97.20 Elevated prostate specific antigen [PSA] (principal)

== ENCOUNTER → 2021-03-29 | Outpatient (CLI) | payer OTHER ==
--- NOTE | 2021-03-29 10:32 | REP ---
INDICATION: DYSPNEA. COMPARISON: 08/15/2016 a frontal view TECHNIQUE: PA and lateral FINDINGS: There is mild cardiomegaly. There is mild thoracic aortic tortuosity status quo. There is left CP angle blunting which has developed since the last exam. Subtle left basilar opacities are also identified representing a change. Lung ibarra are otherwise stable. The right pleural angle is sharp. The osseous structures are stable and intact. IMPRESSION: Left basilar opacity and suspected left pleural effusion etiology uncertain. Consider contrast-enhanced chest CT. <Electronically signed by Scar Woo > 03/29/21 1020
== END ==
LOC: M WUC 09:41
PROVIDERS: ATTEND Internal Medicine
DX: R06.00 Dyspnea, unspecified (principal)

== ENCOUNTER 2021-05-04 18:49 | Emergency (ER) | payer OTHER ==
[~2021-05-04] VITALS: Ht 177.8 cm; Wt 102.2 kg
[2021-05-04 19:49] LABS: BASO % 0.6 % (0.0-1.0); EOS # 0.2 10^3/uL (0.0-0.5); EOS % 2.2 % (0.0-3.0); HEMATOCRIT 40.8 % (42.0-52.0); HEMOGLOBIN 13.4 g/dl (13.5-17.5); LYMPH # 1.8 10^3/uL (1.5-5.0); LYMPH % 25.9 % (24.0-44.0); MEAN CORPUSCULAR HEMOGLOBIN 28.6 pg (27.0-33.0); MEAN CORPUSCULAR HGB CONC 32.8 g/dl (32.0-36.5); MONO # 0.5 10^3/uL (0.0-0.8); MONO % 7.5 % (2.0-8.0); NEUTROPHILS # 4.4 10^3/uL (1.5-8.5); NEUTROPHILS % 63.5 % (36.0-66.0); PLATELET COUNT, AUTOMATED 203 10^3/uL (150-450); RED BLOOD COUNT 4.69 10^6/uL (4.30-6.10); WHITE BLOOD COUNT 6.9 10^3/uL (4.0-10.0)
[2021-05-04] MEDS ORDERED: NITROGLYCERIN 2% OINT 1 GM *U/D* PKT TOP ONE (19:50)
[2021-05-04] MEDS ORDERED: ASPIRIN 81 MG CHEW TABLET PO ONE (19:50)
[2021-05-04 20:04] LABS: PARTIAL THROMBOPLASTIN TIME 31.3 SECONDS (25.9-37.0)
[2021-05-04 20:06] VITALS: BP 157/87
[2021-05-04 20:14] LABS: INR 1.04
[2021-05-04 20:15] LABS: CK-MB VALUE MASS 1.5 NG/ML (<3.6); MB/CK RELATIVE INDEX 2.63 (< OR =4)
[2021-05-04] MEDS ORDERED: HEPARIN DRIP 25,000 UNITS in IV 1 EA IV SCH (20:20)
[2021-05-04] MEDS ORDERED: HEPARIN SOD (PORCINE) 5000UNITS/ML 1ML VIAL/SYRINGE IV ONE (20:20)
[2021-05-04 20:21] LABS: ALT/SGPT 22 U/L (12-78); BILIRUBIN,DIRECT < 0.1 MG/DL (0.0-0.2); BILIRUBIN,TOTAL 0.2 MG/DL (0.2-1.0); BLOOD UREA NITROGEN 11 MG/DL (7-18); CALCIUM LEVEL 7.8 MG/DL (8.8-10.2); CARBON DIOXIDE LEVEL 24 MEQ/L (21-32); CHLORIDE LEVEL 112 MEQ/L (98-107); CREATININE FOR GFR 0.98 MG/DL (0.70-1.30); GLOMERULAR FILTRATION RATE > 60.0 (>49); GLUCOSE, FASTING 106 MG/DL (70-100); LIPASE 87 U/L (73-393); NT-PRO BNP 103 PG/ML (<125); POTASSIUM SERUM 3.2 MEQ/L (3.5-5.1); SODIUM LEVEL 143 MEQ/L (136-145); TOTAL PROTEIN 5.5 GM/DL (6.4-8.2)
[2021-05-04 20:22] LABS: RSV AMPLIFICATION NEGATIVE (NEGATIVE)
[2021-05-04 21:10] LABS: CK-MB VALUE MASS 3.1 NG/ML (<3.6); MB/CK RELATIVE INDEX 4.56 (< OR =4)
[2021-05-04 21:15] VITALS: BP 146/79
== END 2021-05-04 21:46 | disposition short-term general hospital (02) ==
LOC: M ED 18:49
DX: I20.0 Unstable angina (principal); I10 Essential (primary) hypertension; E78.5 Hyperlipidemia, unspecified; G47.33 Obstructive sleep apnea (adult) (pediatric); Z79.82 Long term (current) use of aspirin; Z79.899 Other long term (current) drug therapy
CPT/HCPCS: 71046; 80048; 80076; 82550; 82553; 83690; 83880; 84439; 84443; 84484; 85025; 85610; 85730; 87631; 93005; 93041; 94760; 96374; 99285; J1644

== ENCOUNTER → 2022-02-05 | Outpatient (CLI) | payer OTHER | LOC: M PLALAB 13:43 | PROVIDERS: ATTEND Nurse Practitioner Women's Health | DX: R97.20 Elevated prostate specific antigen [PSA] (principal) ==

== ENCOUNTER → 2022-06-04 | Outpatient (CLI) | payer OTHER | LOC: M PLAIMG 12:49 | PROVIDERS: ATTEND Internal Medicine Pulmonary Disease | DX: R91.8 Other nonspecific abnormal finding of lung field (principal) ==

== ENCOUNTER → 2022-07-31 | Outpatient (CLI) | payer OTHER | LOC: M LAB 09:46 → M PLALAB 09:46 | PROVIDERS: ATTEND Nurse Practitioner Women's Health | DX: R97.20 Elevated prostate specific antigen [PSA] (principal) ==

== ENCOUNTER 2022-09-03 12:59 | Emergency (ER) | payer OTHER ==
[2022-09-03] MEDS ORDERED: ONDANSETRON 4MG 2ML VIAL IV ONE (14:30)
[2022-09-03] MEDS ORDERED: NS 1,000 ML IV ONE (14:30)
[2022-09-03] MEDS ORDERED: KETOROLAC 30 MG/ML 1ML VIAL IV ONE (14:30)
[2022-09-03 15:28] LABS: BASO # 0.1 10^3/uL (0.0-0.2); BASO % 0.4 % (0.0-1.0); EOS % 0.1 % (0.0-3.0); HEMATOCRIT 43.7 % (42.0-52.0); HEMOGLOBIN 14.8 g/dl (13.5-17.5); LYMPH # 1.4 10^3/uL (1.5-5.0); LYMPH % 10.4 % (24.0-44.0); MEAN CORPUSCULAR HEMOGLOBIN 28.9 pg (27.0-33.0); MEAN CORPUSCULAR HGB CONC 33.9 g/dl (32.0-36.5); MEAN CORPUSCULAR VOLUME 85.4 fl (80.0-96.0); MONO # 0.7 10^3/uL (0.0-0.8); MONO % 5.5 % (2.0-8.0); NEUTROPHILS % 83.3 % (36.0-66.0); PLATELET COUNT, AUTOMATED 212 10^3/uL (150-450); RED BLOOD COUNT 5.12 10^6/uL (4.30-6.10); WHITE BLOOD COUNT 13.1 10^3/uL (4.0-10.0)
[2022-09-03 15:55] LABS: LIPASE 32 U/L (12-53)
[2022-09-03 15:57] LABS: ALBUMIN 4.1 G/DL (3.2-5.2); ALKALINE PHOSPHATASE 66 U/L (46-116); ALT/SGPT 18 U/L (7.0-40); AST/SGOT 15 U/L (<34); BILIRUBIN,DIRECT 0.4 MG/DL (<0.4); BILIRUBIN,TOTAL 1.2 MG/DL (0.3-1.2); BLOOD UREA NITROGEN 13 MG/DL (9-23); CALCIUM LEVEL 8.9 MG/DL (8.3-10.6); CARBON DIOXIDE LEVEL 22 MMOL/L (20-31); CHLORIDE LEVEL 107 MMOL/L (98-107); CREATININE FOR GFR 1.17 MG/DL (0.70-1.30); GLOMERULAR FILTRATION RATE > 60.0 (>49); GLUCOSE, FASTING 119 MG/DL (74-106); POTASSIUM SERUM 3.6 MMOL/L (3.5-5.1); SODIUM LEVEL 141 MMOL/L (136-145); TOTAL PROTEIN 6.8 G/DL (5.7-8.2)
[2022-09-03] MEDS ORDERED: MORPHINE 2 MG/ML 1ML VIAL IV ONE (16:40)
[2022-09-03] MEDS ORDERED: PERCOCET 5MG/325MG TAB PO ONE ×2 (16:40→18:20)
[2022-09-03 18:06] VITALS: BP 152/70
[2022-09-03] MEDS ORDERED: ONDANSETRON 4MG ORAL DISINTEGRATING TAB PO ONE (18:20)
[2022-09-03] MEDS ORDERED: KETO10TAB PO (18:21)
[2022-09-03] MEDS ORDERED: ONDA4TAB6 PO (18:21)
[2022-09-03] MEDS ORDERED: PERC5TAB12 PO (18:21)
== END 2022-09-03 18:50 | disposition home or self-care (01) ==
LOC: M ED 12:59
DX: N21.1 Calculus in urethra (principal); I10 Essential (primary) hypertension; Z87.442 Personal history of urinary calculi; N40.0 Benign prostatic hyperplasia without lower urinary tract symptoms; K57.30 Diverticulosis of large intestine without perforation or abscess without bleeding; I25.10 Atherosclerotic heart disease of native coronary artery without angina pectoris; N28.1 Cyst of kidney, acquired; Z79.82 Long term (current) use of aspirin
CPT/HCPCS: 74176; 80048; 80076; 81001; 83690; 85025; 96374; 96375; 99284; J1885; J2405

== ENCOUNTER → 2022-09-13 | Outpatient (CLI) | payer OTHER ==
[~2022-09-13] MED LIST changes: +KETO10TAB PO; +ONDA4TAB6 PO; +PERC5TAB12 PO
== END ==
LOC: M PLAIMG 11:17
PROVIDERS: ATTEND Physician Assistant
DX: N20.1 Calculus of ureter (principal)

== ENCOUNTER 2022-10-04 09:07 | Day surgery (SDC) | payer OTHER ==
[~2022-10-04] VITALS: Ht 179.1 cm; Wt 104.5 kg
[~2022-10-04 09:07] MED LIST changes: +ATOR40TA75 PO; +NS 1,000 ML IV ONE; +TAMS1CAP17 PO
[2022-10-04] MEDS ORDERED: LIDOCAINE 2% 100MG/5ML SDV (FOR ANES.) As Ordered ONE (10:48)
[2022-10-04] MEDS ORDERED: propofoL 200 MG/20 ML VIAL As Ordered ONE ×2 (10:48→10:55)
[2022-10-04] MEDS ORDERED: fentaNYL 100 MCG/2 ML INJECTION As Ordered ONE (10:48)
[2022-10-04 11:40] VITALS: BP 143/75
== END 2022-10-04 11:45 | disposition home or self-care (01) ==
LOC: M OPP 09:07
PROVIDERS: ATTEND Surgery
DX: Z12.11 Encounter for screening for malignant neoplasm of colon (principal); Z86.010 Personal history of colon polyps; D12.6 Benign neoplasm of colon, unspecified; K57.30 Diverticulosis of large intestine without perforation or abscess without bleeding; G47.33 Obstructive sleep apnea (adult) (pediatric); Z79.02 Long term (current) use of antithrombotics/antiplatelets; Z79.82 Long term (current) use of aspirin; Z79.899 Other long term (current) drug therapy; Z88.8 Allergy status to other drugs, medicaments and biological substances
CPT/HCPCS: 45385; 88305; J3010

== ENCOUNTER → 2023-07-09 | Outpatient (CLI) | payer OTHER ==
[~2023-07-09] MED LIST changes: -NS 1,000 ML IV ONE
== END ==
LOC: M RAD 13:17
PROVIDERS: ATTEND Internal Medicine Pulmonary Disease
DX: R91.1 Solitary pulmonary nodule (principal)

== ENCOUNTER → 2023-08-09 | Outpatient (CLI) | payer OTHER | LOC: M PLALAB 10:23 | PROVIDERS: ATTEND Physician Assistant | DX: R97.20 Elevated prostate specific antigen [PSA] (principal) ==

== ENCOUNTER → 2023-08-23 | Outpatient (CLI) | payer OTHER | LOC: M RAD 09:30 | PROVIDERS: ATTEND Internal Medicine | DX: R10.9 Unspecified abdominal pain (principal) ==

== ENCOUNTER → 2024-08-05 | Outpatient (CLI) | payer OTHER ==
[~2024-08-05] MED LIST changes: +ONDA-282 PO; -ONDA4TAB6 PO
== END ==
LOC: M PLALAB 08:40
PROVIDERS: ATTEND Physician Assistant
DX: R97.20 Elevated prostate specific antigen [PSA] (principal)